=== PATIENT | female | born 1955 | race Caucasian/White ===

== ENCOUNTER 2018-01-07 08:00 | Inpatient (IN) | payer OTHER ==
[2017-12-31 15:30] VITALS: BMI 22.8
[2018-01-10] MEDS ORDERED: GABAPENTIN 300 MG CAPSULE (FP) PO ONE (12:46)
[2018-01-10] MEDS ORDERED: oxyCODONE HCL 10 MG SUSTAINED ACTING TABLET PO ONE (12:46)
[2018-01-10] MEDS ORDERED: CELECOXIB 200 MG CAPSULE PO ONE (12:46)
--- NOTE | 2018-01-10 12:49 | HP ---
Satellite [facility] - Chief Complaint Chief Complaint: right knee pain - Past Medical History Allergies/Adverse Reactions: Allergies Allergy/AdvReac Type Severity Reaction Status Date / Time tetracycline Allergy Severe Rash Verified 12/31/17 15:15 - Current Medications Current Medications: Home Medications Medication Instructions Recorded Antiarthritic Combination No.2 900 mg PO DAILY 12/31/17 [Glucosamine-Chondroitin] Ascorbic Acid [Vitamin C] 500 mg PO DAILY 12/31/17 Calcium Carbonate/Vitamin D3 1 each PO DAILY 12/31/17 [Calcium 600 + Vit D Tablet] Ferrous Sulfate [Feosol] 325 mg PO DAILY 12/31/17 Ibuprofen [Advil -] 200 mg PO QID PRN 12/31/17 Magnesium Oxide [Magnesium] 500 mg PO DAILY 12/31/17 Turmeric/Turmeric Root Extract 1,000 mg PO DAILY 12/31/17 [Turmeric] Satellite Physical Exam - Physical Examination General Appearance: Well Nourished, Well Developed, Alert & Oriented x3 ENT: Clear Lung: Normal air movement Heart: Regular rate & rhythm Extremities: Other (right knee- + swelling, + ttp, decr rom, nvi xrays show grade 4 tricompartmental djd) Neurological: Intact, Alert, Oriented Satellite Impression/Plan - Impression/Plan Impression: right knee djd Operative Procedure: right jessica tkr Date to be Performed: 01/17/18
[2018-01-17] MEDS ORDERED: CELECOXIB 200 MG CAPSULE ONE (07:04)
[2018-01-17] MEDS ORDERED: GABAPENTIN 300 MG CAPSULE (FP) ONE (07:04)
[2018-01-17] MEDS ORDERED: oxyCODONE HCL 10 MG SUSTAINED ACTING TABLET ONE (07:04)
[2018-01-17] MEDS ORDERED: VANCOMYCIN 1,000 MG VIAL (RESTRICTED TO ID ONLY) ONE (07:19)
[2018-01-17] MEDS ORDERED: ceFAZolin SODIUM 1 GM VIAL ONE ×2 (07:19→08:30)
[2018-01-17] MEDS ORDERED: BUPIVACAINE LIPOSOME/PF (EXPAREL) 266 MG/20 ML VIAL ONE (07:29)
[2018-01-17] MEDS ORDERED: MIDAZOLAM HCL 2 MG/2 ML SINGLE DOSE VIAL ONE ×2 (07:30→09:29)
[2018-01-17] MEDS ORDERED: TRANEXAMIC ACID 1000 MG/10 ML VIAL IVPUSH ONE (08:00)
[2018-01-17] MEDS ORDERED: CEFAZOLIN 1 GM/D5W 1 GRAM/50 ML BAG IVPB ONE (08:00)
--- NOTE | 2018-01-17 08:24 | HP ---
Satellite [facility] - Chief Complaint Chief Complaint: right knee pain - Past Medical History Allergies/Adverse Reactions: Allergies Allergy/AdvReac Type Severity Reaction Status Date / Time tetracycline Allergy Severe Rash Verified 12/31/17 15:15 - Current Medications Current Medications: Home Medications Medication Instructions Recorded Antiarthritic Combination No.2 900 mg PO DAILY 12/31/17 [Glucosamine-Chondroitin] Ascorbic Acid [Vitamin C] 500 mg PO DAILY 12/31/17 Calcium Carbonate/Vitamin D3 1 each PO DAILY 12/31/17 [Calcium 600 + Vit D Tablet] Ferrous Sulfate [Feosol] 325 mg PO DAILY 12/31/17 Ibuprofen [Advil -] 200 mg PO QID PRN 12/31/17 Magnesium Oxide [Magnesium] 500 mg PO DAILY 12/31/17 Turmeric/Turmeric Root Extract 1,000 mg PO DAILY 12/31/17 [Turmeric] Satellite Physical Exam - Physical Examination Vital Signs: Vital Signs Period Temp Pulse Resp BP Sys/Fuentes Pulse Ox Last 24 Hr 98.2 F 72 18 116/66 Extremities: Other (+ diffuse right knee tenderness and decreased ROM) Satellite Impression/Plan - Impression/Plan Impression: DJD right knee Operative Procedure: right TKR Date to be Performed: 01/17/18
[2018-01-17] MEDS ORDERED: ONDANSETRON 4 MG/2 ML VIAL ONE (08:30)
[2018-01-17] MEDS ORDERED: TRANEXAMIC ACID 1000 MG/10 ML VIAL ONE ×2 (08:30→10:03)
[2018-01-17] MEDS ORDERED: PROPOFOL 20 ML ONE ×2 (08:30)
[2018-01-17] MEDS ORDERED: ePHEDrine SULFATE 50 MG/1 ML AMPULE ONE (09:43)
[2018-01-17] MEDS ORDERED: ONDANSETRON 4 MG/2 ML VIAL IVPUSH PRN ×2 (11:16→12:08)
[2018-01-17] MEDS ORDERED: oxyCODONE HCL 5 MG TABLET PO PRN (11:16)
[2018-01-17] MEDS: ACETAMINOPHEN 1000 MG/100 ML VIAL (NON FORMULARY) IVPB ONE (11:30)
[2018-01-17] MEDS ORDERED: LACTATED RINGERS SOLUTION 1,000 ML IV SCH ×2 (11:30→12:15)
[2018-01-17] MEDS ORDERED: MAG HYDROX/AL HYDROX/SIMETH 30 ML UNIT-DOSE CUP PO PRN (12:08)
[2018-01-17] MEDS ORDERED: MAGNESIUM HYDROX 2400MG/30ML ORAL SUSPENSION 30 ML CUP PO PRN (12:08)
--- NOTE | 2018-01-17 12:12 | OP ---
Operative Note - Note: Operative Date: 01/17/18 Pre-Operative Diagnosis: djd left knee Operation: left TKR Post-Operative Diagnosis: Same as Pre-op Anesthesia: Spinal Operative Report Dictated: Yes
[2018-01-17] MEDS: oxyCODONE HCL 5 MG TABLET PO PRN ×2 (13:18→13:53)
[2018-01-17] MEDS: CEFAZOLIN 2 GM/D5W 2 GM/50 ML ML IVPB SCH (18:14)
[2018-01-17] MEDS: ACETAMINOPHEN 325 MG TABLET (FP) PO SCH (18:15)
[2018-01-17] MEDS: ASPIRIN 325 MG TABLET PO SCH (21:39)
[2018-01-17] MEDS: oxyCODONE HCL 10 MG SUSTAINED ACTING TABLET PO SCH (21:39)
[2018-01-17] MEDS: GABAPENTIN 300 MG CAPSULE (FP) PO SCH (21:39)
[2018-01-17] MEDS: SENNOSIDES/DOCUSATE COMBO (SENNA PLUS) TABLET (UD) PO SCH (21:39)
[2018-01-17] MEDS ORDERED: GABAPENTIN 300 MG CAPSULE (FP) PO SCH (22:00)
[2018-01-18] MEDS: ACETAMINOPHEN 325 MG TABLET (FP) PO SCH ×5 (00:08→23:11)
[2018-01-18] MEDS: CEFAZOLIN 2 GM/D5W 2 GM/50 ML ML IVPB SCH (02:30)
[2018-01-18 07:55] LABS: HEMATOCRIT 32.8 % (32.4-45.2); HEMOGLOBIN 11.3 GM/dl (10.7-15.3); MCH 31.2 pg (25.7-33.7); MCHC 34.4 g/dl (32.0-36.0); MEAN CELL VOLUME 90.6 fl (80-96); MEAN PLT VOLUME 9.5 fl (7.5-11.1); PLATELET COUNT 159 K/MM3 (134-434); RBC 3.62 M/mm3 (3.60-5.2); RDW 12.2 % (11.6-15.6); WHITE BLOOD COUNT 5.5 K/mm3 (4.0-10.8)
[2018-01-18] MEDS: ACETAMINOPHEN 1000 MG/100 ML VIAL (NON FORMULARY) IVPB ONE (08:19)
[2018-01-18 08:25] LABS: ANION GAP 4 (8-16); BLOOD UREA NITROGEN 10 mg/dl (7-18); CALCIUM 8.5 mg/dl (8.4-10.2); CHLORIDE 101 mmol/L (98-107); CO2 29 mmol/L (22-28); CREATININE 0.4 mg/dl (0.6-1.3); GLUCOSE,RANDOM 99 mg/dl (74-106); POTASSIUM 3.9 mmol/L (3.5-5.1); SODIUM 134 mmol/L (136-145)
[2018-01-18] MEDS: SENNOSIDES/DOCUSATE COMBO (SENNA PLUS) TABLET (UD) PO SCH ×2 (09:50→21:11)
[2018-01-18] MEDS: GABAPENTIN 300 MG CAPSULE (FP) PO SCH ×2 (09:50→21:11)
[2018-01-18] MEDS: oxyCODONE HCL 10 MG SUSTAINED ACTING TABLET PO SCH ×2 (09:50→21:11)
[2018-01-18] MEDS: ASPIRIN 325 MG TABLET PO SCH ×2 (09:50→21:11)
[2018-01-18] MEDS: MULTIVITAMINS (DAILY MVI) TABLET (FP) PO SCH (09:50)
[2018-01-18] MEDS: PANTOPRAZOLE 40 MG TABLET (FP) PO SCH (09:50)
[2018-01-18 22:59] VITALS: TEMP 98.4
[2018-01-18] MEDS: oxyCODONE HCL 5 MG TABLET PO PRN (23:12)
[2018-01-19] MEDS: ACETAMINOPHEN 325 MG TABLET (FP) PO SCH ×2 (06:45→12:49)
[2018-01-19] MEDS: oxyCODONE HCL 5 MG TABLET PO PRN (06:56)
[2018-01-19 08:33] LABS: HEMATOCRIT 30.8 % (32.4-45.2); HEMOGLOBIN 10.5 GM/dl (10.7-15.3); MCH 31.4 pg (25.7-33.7); MCHC 34.1 g/dl (32.0-36.0); MEAN CELL VOLUME 91.9 fl (80-96); MEAN PLT VOLUME 10.6 fl (7.5-11.1); PLATELET COUNT 145 K/MM3 (134-434); RBC 3.35 M/mm3 (3.60-5.2); RDW 12.4 % (11.6-15.6)
[2018-01-19 09:32] VITALS: BP 106/51; PULSE 84
[2018-01-19] MEDS: MULTIVITAMINS (DAILY MVI) TABLET (FP) PO SCH (09:33)
[2018-01-19] MEDS: PANTOPRAZOLE 40 MG TABLET (FP) PO SCH (09:33)
[2018-01-19] MEDS: SENNOSIDES/DOCUSATE COMBO (SENNA PLUS) TABLET (UD) PO SCH (09:33)
[2018-01-19] MEDS: GABAPENTIN 300 MG CAPSULE (FP) PO SCH (09:33)
[2018-01-19] MEDS: ASPIRIN 325 MG TABLET PO SCH (09:33)
[2018-01-19] MEDS: oxyCODONE HCL 10 MG SUSTAINED ACTING TABLET PO SCH (09:33)
--- NOTE | 2018-01-19 12:13 | HOSP ---
Subjective - Review of Symptoms General: No: Chills Pulmonary: No: Dyspnea Cardiovascular: No: Chest Pain Musculoskeletal: Yes: Joint Pain (knee) Physical Examination Vital Signs: Vital Signs Temperature 98.4 F 01/19/18 09:32 Pulse Rate 84 01/19/18 09:32 Respiratory Rate 18 01/19/18 09:32 Blood Pressure 106/51 01/19/18 09:32 O2 Sat by Pulse Oximetry (%) 96 01/19/18 06:27 Extremities: Yes: Other (knee pain from replacement) Integumentary: Yes: WNL Neurological: Yes: WNL Labs: CBC, BMP 01/19/18 07:30 01/18/18 07:34 Hospitalist Encounter Assessment: Called by Dr. Crowe, requesting to assist in prescriptions for discharge. I have sent percocet 5/325 40 tabs to requested pharmacy per Dr. Crowe.
--- NOTE | 2018-01-21 10:54 | OP ---
DATE OF OPERATION: 01/17/2018 PREOPERATIVE DIAGNOSIS: Degenerative joint disease, right knee. POSTOPERATIVE DIAGNOSIS: Degenerative joint disease, right knee. PROCEDURE: Right total knee replacement with robotic-assisted navigation (MAKOplasty). SURGICAL ATTENDING: Aime Crowe MD CAMPGROUND ATTENDANT: Mega Condon MD ANESTHESIA: Regional and spinal. CLOSURE: A cemented Triathlon knee system with a 3 femur, 3 tibia, 11 TS polyethylene, 32 patella, and two 4.0 cancellous screws for medial femoral condyle; 0 Vicryl fascia, 0 and 3-0 Monocryl subcuticular, skin glue for skin, 4-0 undyed Vicryl for pin sites. ESTIMATED BLOOD LOSS: Less than 100 mL. COMPLICATIONS: None. CONDITION: Recovery room in stable condition. DESCRIPTION OF PROCEDURE: Patient was taken to the operating room on January 17, 2018. Spinal and regional anesthesia was administered by the anesthesiologist. IV Kefzol and TXA were administered prophylactically prior to the case. Right lower extremity was prepped and draped in the usual sterile fashion as well as a well-padded pneumatic tourniquet on the left proximal thigh. A 10-cm longitudinal midline incision centered over the patella was incised. Hemostasis achieved using Bovie cautery. Sharp dissection was carried down to the level of the extensor mechanism flaps made lateral to perform the procedure. A medial parapatellar arthrotomy was then performed, leaving a cuff of tissue for later closure. The patella was inverted, and the knee was flexed up. Subperiosteal dissection was done in the anterior medial proximal tibia until the knee was able to be brought forward. This was facilitated by taking the ACL, PCL, and medial and lateral menisci. Checkpoints were malleted on both the femur and the tibia. Two pins were placed in the medial femoral condyle in an oblique fashion toward the lateral side, and 2 pins were placed on the tibia 1 handbreadth below the tibial tubercle through 2 stab incisions through the anterior cortex and engaging, but not through the posterior cortex. Fastened these pins to both the tibial and femoral arrays for the navigation device. The knee was then registered with the navigational device using center of rotation of the hip, medial and lateral malleoli, and multiple sites on both the tibia and the femur. Excellent registration was confirmed by use of "popping the bubbles" on both the tibia and the femur. At this time, osteophytes were removed on the femur and the tibia. The knee was then stressed in varus and valgus, in both extension and 90 degrees of flexion to determine flexion gaps. The virtual position of the components was then optimized to equalize these gaps. The robot was then brought into the field and registered. The robot was used then to make the cuts on both the femur and the tibia as to our specifications. Trial reduction with a 3 femur, 3 tibia, and 9 polyethylene achieved good fill and good stability throughout range of motion. The patella was osteotomized down to the appropriate level. A 32 lollipop was used to drill the lug holes, and a 32 patella was applied. Tracking of the patella was seen to be excellent throughout range of motion. Trial components were removed. At this time, the bone was found to be very porous, and the medial femoral condyle was found to have a nondisplaced crack where the MCL attached. To facilitate healing of this fracture and not to let it displace, two 4.0 cannulated cancellous screws were drilled from the medial femoral condyle, fixating this potential fracture. The real components were then cemented in using modern generation cement techniques with pressurization. The knee was thoroughly inspected to remove all excess cement. The TS implant of 11-mm thickness was used to also give medial and lateral stability due to the fracture as well. The knee was taken through a range of motion and found to go full extension and full flexion with excellent tracking and excellent stability throughout. The knee was thoroughly irrigated with copious amounts of irrigation. Vancomycin powder was placed into the arthrotomy. The medial parapatellar arthrotomy was then closed using No. 1 Vicryl interrupted suture, 0 and 2-0 for the subcutaneous, and 3-0 Monocryl subcuticular, and skin glue for skin, 4-0 undyed Vicryl for pin sites. A sterile pressure dressing was applied. Patient awakened from anesthesia, transferred to Recovery in stable condition. The tourniquet was only placed up during cementation. That was only up for about approximately 1/2 hour. Sudhir [id number] [facility]
== END 2018-01-19 13:40 | disposition home health service (06) | DRG 470 ==
LOC: FM/S 01-17 05:54
PROVIDERS: ADMIT Orthopaedic Surgery; ATTEND Orthopaedic Surgery
PROC: 8E0Y0CZ Robotic Assisted Procedure of Lower Extremity, Open Approach (ICD-10-PCS; 2018-01-17)
PROC: 0SRC0J9 Replacement of Right Knee Joint with Synthetic Substitute, Cemented, Open Approach (ICD-10-PCS; principal; 2018-01-17 08:40)
DX: M17.11 Unilateral primary osteoarthritis, right knee (principal)
CPT/HCPCS: 36415; 73560-TC-RT-FY; 80048; 85027; 94010; 94760; 97116-GP; 97161-GP

== ENCOUNTER 2018-03-25 11:34 | Day surgery (SDC) | payer OTHER ==
[2018-03-21 14:37] VITALS: BMI 22.4
--- NOTE | 2018-03-25 07:58 | HP ---
Satellite [facility] - Chief Complaint Chief Complaint: right knee stiffness - Past Medical History Allergies/Adverse Reactions: Allergies Allergy/AdvReac Type Severity Reaction Status Date / Time tetracycline Allergy Severe Rash Verified 12/31/17 15:15 - Current Medications Current Medications: Home Medications Medication Instructions Recorded Antiarthritic Combination No.2 900 mg PO DAILY 12/31/17 [Glucosamine-Chondroitin] Ascorbic Acid [Vitamin C] 500 mg PO DAILY 12/31/17 Calcium Carbonate/Vitamin D3 1 each PO DAILY 12/31/17 [Calcium 600 + Vit D Tablet] Ibuprofen [Advil -] 200 mg PO QID PRN 12/31/17 Magnesium Oxide [Magnesium] 500 mg PO DAILY 12/31/17 Turmeric/Turmeric Root Extract 1,000 mg PO DAILY 12/31/17 [Turmeric] Satellite Physical Exam - Physical Examination General Appearance: Well Nourished, Well Developed, Alert & Oriented x3 ENT: Clear Lung: Normal air movement Heart: Regular rate & rhythm Extremities: Other (right knee- incision well healed, rom 0-80, nvi) Neurological: Intact, Alert, Oriented Satellite Impression/Plan - Impression/Plan Impression: right knee arthrofibrosis s/p tkr Operative Procedure: right knee JAYSON Date to be Performed: 03/25/18
[2018-03-25] MEDS ORDERED: MIDAZOLAM HCL 2 MG/2 ML SINGLE DOSE VIAL ONE (14:57)
--- NOTE | 2018-03-25 15:09 | OP ---
Operative Note - Note: Operative Date: 03/25/18 (huong) Pre-Operative Diagnosis: right knee arthrofibrosis s/p tkr Operation: right knee JAYSON Post-Operative Diagnosis: Same as Pre-op Surgeon: Aime Crowe Anesthesiologist/MACHINE BINDER STRIPPER: Fernando Goodwin Anesthesia: MAC Operative Report Dictated: Yes
[2018-03-25] MEDS ORDERED: ONDANSETRON 4 MG/2 ML VIAL IVPUSH PRN (15:22)
[2018-03-25] MEDS ORDERED: oxyCODONE HCL 5 MG TABLET PO ONE (15:27)
[2018-03-25] MEDS ORDERED: LACTATED RINGERS SOLUTION 1,000 ML IV SCH (15:30)
--- NOTE | 2018-03-25 15:35 | OP ---
DATE OF OPERATION: 03/25/2018 PREOPERATIVE DIAGNOSIS: Stiffness status post right total knee replacement. POSTOPERATIVE DIAGNOSIS: Stiffness status post right total knee replacement. PROCEDURE: Manipulation under anesthesia, right knee. SURGICAL ATTENDING: Aime Crowe MD ANESTHESIA: IV sedation. COMPLICATIONS: None. CONDITION: Recovery room in stable condition. DESCRIPTION OF OPERATIVE PROCEDURE: Patient taken to the operating room on March 25, 2018. IV sedation was administered prior to the case. Prior to manipulation, patient had range of motion of 0-70. With a gentle manipulation, the knee was able to get from 0-120 degrees. Auditory sensation revealed small poppings inside the knee while the flexion was easily obtained. Good stability was maintained in varus/valgus, and the patient went full extension with good mobilization of the patella. Patient awakened from anesthesia and transferred to Recovery in stable condition without complication. Estimated blood loss: Negligible. Sudhir [id number]
[2018-03-25 16:11] VITALS: TEMP 97.9
[2018-03-25] MEDS ORDERED: oxyCODONE HCL 5 MG TABLET ONE (16:26)
[2018-03-25 17:37] VITALS: BP 123/61; PULSE 84
== END 2018-03-25 17:20 | disposition home or self-care (01) ==
LOC: FASU 11:34
PROVIDERS: ATTEND Orthopaedic Surgery
PROC: 7W06X9Z Osteopathic Treatment of Lower Extremities using Other Method (ICD-10-PCS; principal; 2018-03-25 14:00)
DX: M25.661 Stiffness of right knee, not elsewhere classified (principal); Z96.651 Presence of right artificial knee joint
CPT/HCPCS: 94760

== ENCOUNTER 2018-07-01 07:49 | Inpatient (IN) | payer OTHER ==
[2018-06-24 17:59] VITALS: BMI 22.4
--- NOTE | 2018-07-01 07:55 | HP ---
Satellite [facility] - Chief Complaint Chief Complaint: right hip pain - Past Medical History Allergies/Adverse Reactions: Allergies Allergy/AdvReac Type Severity Reaction Status Date / Time crab Allergy Severe Swelling Verified 06/24/18 17:49 tetracycline Allergy Severe Rash Verified 06/24/18 17:49 - Current Medications Current Medications: Home Medications Medication Instructions Recorded Antiarthritic Combination No.2 900 mg PO DAILY 12/31/17 [Glucosamine-Chondroitin] Ascorbic Acid [Vitamin C] 500 mg PO DAILY 12/31/17 Calcium Carbonate/Vitamin D3 1 each PO DAILY 12/31/17 [Calcium 600 + Vit D Tablet] Ibuprofen [Advil -] 600 mg PO DAILY PRN 12/31/17 Magnesium Oxide [Magnesium] 500 mg PO DAILY 12/31/17 Turmeric/Turmeric Root Extract 1,000 mg PO DAILY 12/31/17 [Turmeric] Acetaminophen [Tylenol] 650 mg PO ASDIR PRN 03/25/18 Satellite Physical Exam - Physical Examination General Appearance: Well Nourished, Well Developed, Alert & Oriented x3 ENT: Clear Lung: Normal air movement Heart: Regular rate & rhythm Extremities: Other (right hip- + ttp, dec rom, nvi xrays show grade 4 hip djd) Neurological: Intact, Alert, Oriented Satellite Impression/Plan - Impression/Plan Impression: right hip djd Operative Procedure: right jessica thr Date to be Performed: 07/01/18
[2018-07-01] MEDS ORDERED: oxyCODONE HCL 10 MG SUSTAINED ACTING TABLET PO ONE (08:01)
[2018-07-01] MEDS ORDERED: TRANEXAMIC ACID 1000 MG/10 ML VIAL IVPUSH ONE (08:01)
[2018-07-01] MEDS ORDERED: CELECOXIB 200 MG CAPSULE PO ONE (08:01)
[2018-07-01] MEDS ORDERED: GABAPENTIN 300 MG CAPSULE (FP) PO ONE (08:01)
[2018-07-01] MEDS ORDERED: CEFAZOLIN 2 GM in DEXTROSE 5%-WATER - 50 ML IVPB ONE (08:01)
[2018-07-01] MEDS ORDERED: DEXAMETHASONE SOD PHOSPHATE/PF 10 MG/ML SDV ONE (09:49)
[2018-07-01] MEDS ORDERED: MIDAZOLAM HCL 2 MG/2 ML SINGLE DOSE VIAL ONE (09:50)
[2018-07-01] MEDS ORDERED: LIDOCAINE 1% P/F 10 MG/ML VIAL ONE (09:50)
[2018-07-01] MEDS ORDERED: BUPIVACAINE HCL/PF (5 MG/ML) 30 ML VIAL IJ ONE (09:50)
[2018-07-01] MEDS ORDERED: VANCOMYCIN 1,000 MG VIAL (RESTRICTED TO ID ONLY) IVPB ONE (12:22)
[2018-07-01] MEDS ORDERED: ceFAZolin SODIUM 1 GM VIAL IVPB ONE (12:23)
[2018-07-01] MEDS ORDERED: ONDANSETRON 4 MG/2 ML VIAL IVPUSH PRN ×2 (12:25→13:18)
[2018-07-01] MEDS ORDERED: ACETAMINOPHEN 325 MG TABLET (FP) PO SCH (12:30)
[2018-07-01] MEDS ORDERED: LACTATED RINGERS SOLUTION 1,000 ML IV SCH ×2 (12:30→13:30)
[2018-07-01] MEDS ORDERED: MAG HYDROX/AL HYDROX/SIMETH 30 ML UNIT-DOSE CUP PO PRN (13:18)
--- NOTE | 2018-07-01 13:20 | OP ---
Operative Note - Note: Operative Date: 07/01/18 (huong) Pre-Operative Diagnosis: right hip djd Operation: right jessica thr Post-Operative Diagnosis: Same as Pre-op Surgeon: Aime Crowe Vending Machine Host/Hostess: Serg Cano Anesthesiologist/FIRE MARSHAL REFINERY: Brynn Gonzalez Anesthesia: Spinal, Local Specimens Removed: femoral head Estimated Blood Loss (mls): 100 Operative Report Dictated: Yes
[2018-07-01] MEDS: oxyCODONE HCL 5 MG TABLET PO PRN ×4 (14:34→22:43)
--- NOTE | 2018-07-01 16:40 | OP ---
DATE OF OPERATION: 07/01/2018 PREOPERATIVE DIAGNOSIS: Degenerative joint disease, right hip. POSTOPERATIVE DIAGNOSIS: Degenerative joint disease, right hip. PROCEDURE PERFORMED: Right total hip replacement with robotic-assisted navigation (MAKOplasty). SURGICAL ATTENDING: Radha Crowe MD ANIMAL ASSISTANT: DONALDO Hightower ANESTHESIA: Regional and spinal. CLOSURE: A Cecily total hip system with a 50-mm press-fit Trident II acetabular cup, a 36-mm minus 2.5-mm ceramic head, and a number 7 Accolade II press-fit femoral stem with 1 Dall-Miles prophylactic cable, number 1 Vicryl for fascia, 0 and 2-0 subcutaneous, 3-0 Monocryl subcuticular and skin glue for skin, 4-0 undyed Vicryl for pin sites. ESTIMATED BLOOD LOSS: Less 100 mL. COMPLICATIONS: None. CONDITION: To the recovery room in stable condition. DESCRIPTION OF PROCEDURE: The patient was taken to the operating room on July 01, 2018. Regional and spinal anesthesia was administered by the anesthesiologist. IV Kefzol and TXA were administered prophylactically prior to the case. The patient was placed in the lateral decubitus position with all prominences well-padded. The right hip area was prepped and draped in the usual sterile fashion. Three stab incisions were made over the iliac wing. Three parallel threaded pins were then drilled through the 2 tables of the ileum. Through this was passed the navigation array for the navigation portion of the case. Next, a posterior approach was utilized to gain access to the hip. A 12-cm curved longitudinal incision over the posterolateral aspect of the greater trochanter was incised. Hemostasis was achieved using Bovie cautery. Sharp dissection was carried down until the gluteus vito and the ITB. The fascia was opened, spreading the fibers of the gluteus vito in line with the direction of origin. A Charnley retractor was placed in this layer and care was taken not to impale the sciatic nerve. The short external rotators were detached off the insertion of the greater trochanter and peeled off the capsule. A checkpoint was malleted into the greater trochanter. This checkpoint as well as the inferior pole of the patella was registered with the navigation device prior to dislocating the hip. A posterior capsulotomy was then performed, and the hip was then dislocated. The femoral neck was osteotomized at the appropriate level as directed by the navigation device to be at the appropriate level. Anterior and posterior retractors were placed, exposing the acetabulum. A circumferential debridement of the labrum was performed, exposing the rim. An acetabular checkpoint was malleted superior to the acetabulum. The acetabulum was then registered with the navigation device, multiple points in and around the acetabulum. Excellent registration was confirmed by "popping the bubbles." The navigation device was then brought into the field. We had decided earlier, using the templating portion of the device, to use a 50 cup with 40 degrees of inclination and 25 degrees of version. The robot was brought into the field and was used to ream the acetabulum to a 49 depth and circumference. Good bleeding bone was obtained. The real 50 Trident II cup was then malleted into place, achieving excellent fixation in the acetabulum. A polyethylene liner was then slipped into place, accepting a 36-mm head. Next, our attention was directed to the femoral side. A box chisel, a T-handled reamer and serial broaches were used until a number 7 stem achieved excellent fill and rigidity in the femur at the appropriate level. A trial reduction with a 127-degree neck and a 36-mm minus 2.5-mm in length head were used and the hip was reduced. Range of motion revealed excellent stability in external rotation, marked flexion at 90 degrees of flexion, was stable to marked adduction and internal rotation, had a positive hang test and negative telescoping. The trial components were removed. Due to the feeling that the bone in the femur was on the thin side, one provisional prophylactic Dall-Miles cable was placed at the level of the neck to stop any potential propagation of fracture of the calcar. The real components were then malleted into place. A number 7 stem achieved excellent fill and fit. A 36 ceramic minus 2.5-mm head was then cold welded to the trunnion, and the hip was reduced. Range of motion and stability were as described earlier. The navigation device was used to ascertain that the limb lengths were equal. The hip was irrigated with copious amounts of antibiotic irrigation. Vancomycin powder was placed in the joint. The fascia was closed with number 1 Vicryl, 0 and 2-0 subcutaneous, and 3-0 Monocryl subcuticular for the skin plus skin glue. The pins in the ilium were removed. The pin sites were irrigated and closed with 4-0 undyed Vicryl. Prior to closure, the checkpoints were removed as well. Sterile Aquacel dressing was placed over both incisions. The patient was placed in the supine position. X-rays revealed excellent position of the components. Limb lengths revealed to be equal. The patient was awakened from anesthesia and transferred to the recovery room in stable condition, with no complications. Estimated blood loss was less than 100 mL. RADHA CROWE M.D. [id number]
[2018-07-01] MEDS: CEFAZOLIN 2 GM/D5W 2 GM/50 ML ML IVPB SCH (19:56)
[2018-07-01] MEDS: ACETAMINOPHEN 325 MG TABLET (FP) PO SCH (21:26)
[2018-07-01] MEDS: GABAPENTIN 300 MG CAPSULE (FP) PO SCH (21:26)
[2018-07-01] MEDS: oxyCODONE HCL 10 MG SUSTAINED ACTING TABLET PO SCH (21:27)
[2018-07-01] MEDS: SENNOSIDES/DOCUSATE COMBO (SENNA PLUS) TABLET (UD) PO SCH (22:44)
[2018-07-02] MEDS: oxyCODONE HCL 5 MG TABLET PO PRN ×5 (01:07→19:32)
[2018-07-02] MEDS: ACETAMINOPHEN 325 MG TABLET (FP) PO SCH ×4 (02:16→21:29)
[2018-07-02] MEDS: CEFAZOLIN 2 GM/D5W 2 GM/50 ML ML IVPB SCH (03:05)
--- NOTE | 2018-07-02 08:15 | PN ---
Progress Note (short form) - Note Progress Note: Ortho Pt seen and examined s/p right jessica thr pod #1 Selected Entries 07/02/18 05:00 Temperature 97.7 F Pulse Rate 64 Respiratory 16 Rate Blood Pressure 100/60 Laboratory Tests 07/02/18 07:30 WBC Pending Hgb Pending Hct Pending Plt Count Pending dressing c/d/i, calf soft, nt nvi a/p PT hip precautions dvt ppx pain control d/c home tomorrow if stable
[2018-07-02 08:24] LABS: HEMATOCRIT 33.7 % (32.4-45.2); HEMOGLOBIN 11.5 GM/dl (10.7-15.3); MCH 32.8 pg (25.7-33.7); MCHC 34.1 g/dl (32.0-36.0); MEAN CELL VOLUME 96.2 fl (80-96); MEAN PLT VOLUME 9.7 fl (7.5-11.1); PLATELET COUNT 182 K/MM3 (134-434); RBC 3.51 M/mm3 (3.60-5.2); RDW 12.4 % (11.6-15.6); WHITE BLOOD COUNT 6.3 K/mm3 (4.0-10.8)
[2018-07-02] MEDS: ASPIRIN 325 MG TABLET PO SCH (08:26)
[2018-07-02] MEDS: PANTOPRAZOLE 40 MG TABLET (FP) PO SCH (09:40)
[2018-07-02] MEDS: oxyCODONE HCL 10 MG SUSTAINED ACTING TABLET PO SCH ×2 (09:41→21:30)
[2018-07-02] MEDS: MULTIVITAMINS (DAILY MVI) TABLET (FP) PO SCH (09:41)
[2018-07-02] MEDS: SENNOSIDES/DOCUSATE COMBO (SENNA PLUS) TABLET (UD) PO SCH ×2 (09:41→21:30)
[2018-07-02] MEDS: GABAPENTIN 300 MG CAPSULE (FP) PO SCH ×2 (09:41→21:30)
[2018-07-02] MEDS: MAGNESIUM HYDROX 2400MG/30ML ORAL SUSPENSION 30 ML CUP PO PRN (09:41)
--- NOTE | 2018-07-02 11:06 | PN ---
Progress Note, Physician Chief Complaint: Pt ambulating and pain controlled, no anesthesia complaints. - Current Medication List Current Medications: Active Medications Acetaminophen (Tylenol -) 650 mg PO Q6H [facility] Stop: 07/04/18 20:59 Last Admin: 07/02/18 09:41 Dose: 650 mg Al Hydroxide/Mg Hydroxide (Mylanta Oral Suspension -) 30 ml PO Q4H PRN PRN Reason: DYSPEPSIA Aspirin (Asa -) 325 mg PO DAILY@0800 [facility] Last Admin: 07/02/18 08:26 Dose: 325 mg Gabapentin (Neurontin -) 300 mg PO BID [facility] Last Admin: 07/02/18 09:41 Dose: 300 mg Magnesium Hydroxide (Milk Of Magnesia -) 30 ml PO PRN PRN PRN Reason: CONSTIPATION Last Admin: 07/02/18 09:41 Dose: 30 ml Multivitamins/Minerals/Vitamin C (Tab-A-Vit -) 1 tab PO DAILY [facility] Last Admin: 07/02/18 09:41 Dose: 1 tab Ondansetron HCl (Zofran Injection) 4 mg IVPUSH Q6H PRN PRN Reason: NAUSEA Oxycodone HCl (Roxicodone -) 5 mg PO Q3H PRN PRN Reason: PAIN LEVEL 1-5 Oxycodone HCl (Roxicodone -) 10 mg PO Q3H PRN PRN Reason: PAIN LEVEL 6-10 Last Admin: 07/02/18 07:05 Dose: 10 mg Oxycodone HCl (Oxycontin -) 10 mg PO BID [facility] Stop: 07/04/18 12:26 Last Admin: 07/02/18 09:41 Dose: 10 mg Pantoprazole Sodium (Protonix -) 40 mg PO DAILY [facility] Last Admin: 07/02/18 09:40 Dose: 40 mg Senna/Docusate Sodium (Pericolace -) 2 tablet PO BID [facility] Last Admin: 07/02/18 09:41 Dose: 2 tablet - Objective Vital Signs: Vital Signs Temperature 97.7 F 07/02/18 05:00 Pulse Rate 64 07/02/18 05:00 Respiratory Rate 16 07/02/18 05:00 Blood Pressure 100/60 07/02/18 05:00 O2 Sat by Pulse Oximetry (%) 95 07/01/18 22:50 Constitutional: Yes: Well Nourished, No Distress, Calm Musculoskeletal: Yes: WNL Neurological: Yes: WNL, Alert, Oriented ...Motor Strength: WNL Labs: CBC, BMP 07/02/18 07:30 Assessment/Plan POD#1 s/p Right Total Hip Replacement under spinal. Doing well. D/C from anesthesia care.
[2018-07-03] MEDS: oxyCODONE HCL 5 MG TABLET PO PRN ×3 (05:59→14:20)
[2018-07-03] MEDS: MAGNESIUM HYDROX 2400MG/30ML ORAL SUSPENSION 30 ML CUP PO PRN (06:00)
[2018-07-03] MEDS: ACETAMINOPHEN 325 MG TABLET (FP) PO SCH ×2 (06:00→10:22)
[2018-07-03 06:40] VITALS: BP 104/52; PULSE 87; TEMP 98.8
[2018-07-03 08:16] LABS: HEMOGLOBIN 10.3 GM/dl (10.7-15.3)
[2018-07-03 08:22] LABS: HEMATOCRIT 29.9 % (32.4-45.2); MCH 32.9 pg (25.7-33.7); MCHC 34.4 g/dl (32.0-36.0); MEAN CELL VOLUME 95.8 fl (80-96); MEAN PLT VOLUME 9.9 fl (7.5-11.1); PLATELET COUNT 161 K/MM3 (134-434); RBC 3.12 M/mm3 (3.60-5.2); RDW 12.6 % (11.6-15.6); WHITE BLOOD COUNT 7.3 K/mm3 (4.0-10.8)
--- NOTE | 2018-07-03 08:25 | PN ---
Progress Note (short form) - Note Progress Note: Ortho Pt seen and examined s/p right jessica thr pod #2 Selected Entries 07/03/18 06:39 Temperature 98.8 F Pulse Rate 87 Respiratory 18 Rate Blood Pressure 104/52 Laboratory Tests 07/02/18 07:30 WBC 6.3 Hgb 11.5 Hct 33.7 D Plt Count 182 dressing c/d/i, calf soft, nt nvi a/p PT hip precautions dvt ppx pain control d/c home today f/u in 1 week
--- NOTE | 2018-07-03 08:26 | DS ---
Physical Examination Vital Signs: Vital Signs Temperature 98.8 F 07/03/18 06:39 Pulse Rate 87 07/03/18 06:39 Respiratory Rate 18 07/03/18 06:39 Blood Pressure 104/52 07/03/18 06:39 O2 Sat by Pulse Oximetry (%) 100 07/03/18 06:39 Discharge Summary Reason For Visit: OSTEOARTHRITIS Procedures: Principal: right thr Hospital Course: admitted for elective right jessica thr, uneventful post-op, stable for d/c Condition: Good - Instructions Diet, Activity, Other Instructions: Post-op Instructions-Total Hip Replacement Call the office for a follow-up appointment in 1 week - [phone] Aspirin 325mg daily for 6 weeks. Pain medication was sent into your pharmacy. Apply Graduated Compression Stockings (TEDs) to both lower extremities- remove daily for hygiene ONLY Apply Sequential Compression Device (SCDs) to both Lower extremities remove for PT and hygiene ONLY Apply cold packs to affected area for 15 minutes every 2 hours. Physical Therapist will come to your home for the first 5 days. You will be set up with outpatient PT at your first post-operative visit. Patient may ambulate as tolerated-encourage self care (at least every 2-3 hours while awake) with walker or cane Maintain Aquacel (waterproof) dressing to operative wound (will be removed by surgeon at first office visit) Shower with Aquacel dressing in place-if Aquacel integrity compromised, remove and apply dry sterile dressing and notify Orthopedist. DO NOT SHOWER unless Orthopedists approves without Aquacel dressing CONTACT THE OFFICE FOR ANY CHANGE IN YOUR CONDITION (for example-fever greater than 102 degrees, excessive bleeding from operative site, purulent drainage, severe swelling or pain) GO TO THE EMERGENCY ROOM IF THERE IS A MEDICAL EMERGENCY Hip Precautions: * Keep a rolled towel under affected heel while in bed or chair (to keep knee in extension) * Dependent upon approach: * Posterior - do not cross legs; do not sit on low chairs or toilets. * If you have any questions, please do not hesitate to call the office - [phone]. Referrals: Aime Crowe MD [Staff Physician] - Disposition: VNS/HOME HEALTH CARE - Home Medications Comprehensive Discharge Medication List: Ambulatory Orders Antiarthritic Combination No.2 [Glucosamine-Chondroitin] 900 mg PO DAILY Ascorbic Acid [Vitamin C] 500 mg PO DAILY 12/31/17 Calcium Carbonate/Vitamin D3 [Calcium 600 + Vit D Tablet] 1 each PO DAILY Ibuprofen [Advil -] 600 mg PO DAILY PRN 12/31/17 Magnesium Oxide [Magnesium] 500 mg PO DAILY 12/31/17 Turmeric/Turmeric Root Extract [Turmeric 500 mg Capsule] 1,000 mg PO DAILY 12/31 Aspirin [ASA -] 325 mg PO DAILY@0800 tablet 07/01/18 Oxycodone HCl/Acetaminophen [Percocet 5-325 mg Tablet -] 1 - 2 tab PO Q6H #50 tab MDD 8 07/01/18
[2018-07-03] MEDS: ASPIRIN 325 MG TABLET PO SCH (08:47)
[2018-07-03] MEDS: oxyCODONE HCL 10 MG SUSTAINED ACTING TABLET PO SCH (10:22)
[2018-07-03] MEDS: GABAPENTIN 300 MG CAPSULE (FP) PO SCH (10:22)
[2018-07-03] MEDS: PANTOPRAZOLE 40 MG TABLET (FP) PO SCH (10:23)
[2018-07-03] MEDS: MULTIVITAMINS (DAILY MVI) TABLET (FP) PO SCH (10:23)
[2018-07-03] MEDS: SENNOSIDES/DOCUSATE COMBO (SENNA PLUS) TABLET (UD) PO SCH (10:23)
--- NOTE | 2018-07-07 15:22 | PATH ---
Surgical Pathology Report Patient Name: SAW STONE Med. Rec. #: [id number] /Age/Gender: 1955 (Age: 62) / F Account: [id number] Location: [facility] MED-SURG Taken: 07/01/2018 Received: 07/01/2018 Reported: 07/07/2018 Physicians: Aime Crowe M.D. Specimen(s) Received RIGHT FEMORAL HEAD Clinical History Osteoarthritis right hip Final Diagnosis FEMORAL HEAD, RIGHT, TOTAL HIP REPLACEMENT: DEGENERATIVE JOINT DISEASE. Electronically Signed Velia Thurston M.D. Gross Description Received in formalin, labeled "right femoral head," is a 4.8 x 4.8 x 3.3 cm. femoral head with a 0.7 cm in length portion of femoral neck attached. The margin of resection is smooth. There is a 4 cm in greatest dimension area of eburnation present. The remaining articular surface is vale-yellow and diffusely granular and nodular. The underlying trabecular bone is yellow and hard. A technical service representative section is submitted in one cassette, following decalcification. 07/03/2018 [facility]07/03/2018
== END 2018-07-03 14:26 | disposition home health service (06) | DRG 470 ==
LOC: FM/S 07:49
PROVIDERS: ADMIT Orthopaedic Surgery; ATTEND Orthopaedic Surgery
PROC: 8E0W0CZ Robotic Assisted Procedure of Trunk Region, Open Approach (ICD-10-PCS; 2018-07-01)
PROC: 0SR90JZ Replacement of Right Hip Joint with Synthetic Substitute, Open Approach (ICD-10-PCS; principal; 2018-07-01 11:00)
DX: M16.11 Unilateral primary osteoarthritis, right hip (principal)
CPT/HCPCS: 36415; 73502-TC-RT; 85027; 88304-TC; 88311-TC; 94760; 97116-GP; 97162-GP